=== PATIENT | male | born 1995 | race Native Hawaiian/Other Pacific Islander ===

== ENCOUNTER 2017-11-10 20:01 | Inpatient (IN) | payer OTHER ==
--- NOTE | 2017-11-10 20:31 | C.PDOC ---
History Of Present Illness Jaime Menon is a 22 year old male, with no significant past medical history, who was brought to the emergency department via EMS complaining of feeling depressed onset for a few days. Patient is anhedonic and denies any alcohol use. He denies any homicidal ideation or hallucinations. No further medical complaints. PMD: None provided. Time Seen by Provider: 11/10/17 20:31 Chief Complaint (Nursing): Psychiatric Evaluation History Per: Patient History/Exam Limitations: no limitations Onset/Duration Of Symptoms: Days Current Symptoms Are (Timing): Still Present Suicide/Self Injury Attempted (Context): None Modifying Factor(s): None Severity: None Associated Symptoms: Depression, Suicidal Thoughts. denies: Suicidal Plan Involuntary Hold By: None Recent travel outside of the [place]: No Additional History Per: Patient Past Medical History Reviewed: Historical Data, Nursing Documentation, Vital Signs Vital Signs: Last Vital Signs Temp 98 F 11/10/17 20:11 Pulse 72 11/10/17 20:11 Resp 20 11/10/17 20:11 BP 132/75 11/10/17 20:11 Pulse Ox 98 11/10/17 20:44 - Medical History PMH: No Chronic Diseases Surgical History: No Surg Hx Family History: States: Unknown Family Hx - Social History Hx Tobacco Use: No Hx Alcohol Use: No Hx Substance Use: No - Immunization History Hx Tetanus Toxoid Vaccination: No Hx Influenza Vaccination: No Hx Pneumococcal Vaccination: No Review Of Systems Constitutional: Negative for: Fever, Chills Cardiovascular: Negative for: Chest Pain Respiratory: Negative for: Shortness of Breath Gastrointestinal: Negative for: Abdominal Pain Musculoskeletal: Negative for: Back Pain Skin: Negative for: Rash Neurological: Negative for: Weakness, Altered Mental Status Psych: Positive for: Depression, Suicidal ideation Physical Exam - Physical Exam Appears: No Acute Distress Skin: Warm, Dry Head: Normacephalic Eye(s): bilateral: Normal Inspection Oral Mucosa: Moist Neck: Supple Chest: Symmetrical Cardiovascular: Rhythm Regular Respiratory: No Rales, No Rhonchi, No Wheezing Gastrointestinal/Abdominal: Soft, No Tenderness Back: No CVA Tenderness Extremity: Normal ROM, No Deformity, No Swelling Extremity: Bilateral: Atraumatic Neurological/Psych: Oriented x3 Gait: Steady ED Course And Treatment - Laboratory Results Result Diagrams: 11/10/17 20:41 11/10/17 20:41 O2 Sat by Pulse Oximetry: 98 (RA) Pulse Ox Interpretation: Normal Progress Note: Initial Impression: depression. Initial Plan: Alcohol serum, CMP , Drug screen, urine, CBC w/differential, AES Crisis evaluation,Urinalysis Disposition Discussed With .: Robert Moreno Comment: accepted the pt on his service and took over the care at 11PM Doctor Will See Patient In The: Hospital Counseled Patient/Family Regarding: Studies Performed, Diagnosis - Disposition Disposition: HOSPITALIZED Disposition Time: 20:31 Condition: FAIR Forms: [employer] (German) - POA Present On Arrival: None - Clinical Impression Clinical Impression: Psychosis - Scribe Statement Sebastian Zambrano Decision To Admit - Pt Status Changed To: Hospital Disposition Of: Inpatient - Admit Certification Admit to Inpatient:: After my assessment, the patient will require hospitalization for at least two midnights. This is because of the severity of symptoms shown, intensity of services needed, and/or the medical risk in this patient being treated as an outpatient. - InPatient: Physician Admission Certification: I certify that this patient requires 2 or more midnights of care for the following reason:: After my assessment, the patient will require hospitalization for at least two midnights. This is because of the severity of symptoms shown, intensity of services needed, and/or the medical risk in this patient being treated as an outpatient. - . Bed Request Type: Psychiatry Admitting Physician: Robert Moreno Patient Diagnosis: Psychosis
[2017-11-10 20:47] LABS: BASO % 0.7 % (0.0-2.0); EOS % 0.3 % (0.0-4.0); HEMOGLOBIN 14.7 g/dL (12.0-18.0); LYMPH # 1.3 K/uL (1.0-4.3); LYMPH % 21.1 % (20.0-40.0); MEAN CELL VOLUME 88.3 fL (80.0-94.0); MEAN CORPUSCULAR HEMOGLOBIN 29.9 pg (27.0-31.0); MEAN CORPUSCULAR HGB CONC 33.8 g/dL (33.0-37.0); MEAN PLATELET VOLUME 8.9 fL (7.2-11.7); MONO # 0.4 K/uL (0.0-0.8); MONO % 6.2 % (0.0-10.0); NEUT # 4.6 K/uL (1.8-7.0); NEUT % 71.7 % (50.0-75.0); RBC 4.93 Mil/uL (4.40-5.90); RED CELL DISTRIBUTION WIDTH 13.5 % (11.5-14.5); URINE BILIRUBIN NEGATIVE (NEGATIVE); URINE BLOOD NEGATIVE (NEGATIVE); URINE CLARITY Clear (Clear); URINE COLOR Yellow (YELLOW); URINE GLUCOSE (UA) NORMAL (Normal); URINE LEUKOCYTE ESTERASE NEG Leu/uL (Negative); URINE PROTEIN NEGATIVE (NEGATIVE); WHITE BLOOD COUNT 6.4 K/uL (4.8-10.8)
[2017-11-10 20:57] LABS: ALB/GLOB RATIO 1.7 (1.0-2.1); ALT/SGPT 42 U/L (21-72); AST/SGOT 26 U/L (17-59); BLOOD UREA NITROGEN 11 mg/dL (9-20); CALCIUM 9.6 mg/dl (8.6-10.4); GFR AFRICAN-AMERICAN > 60; GFR NON-AFRICAN AMERICAN > 60
[2017-11-10 21:01] LABS: BARBITURATES, UR NEGATIVE (NEGATIVE); BENZODIAZEPINES, UR NEGATIVE (NEGATIVE); OPIATES, UR NEGATIVE (NEGATIVE); PHENCYCLIDINE, UR NEGATIVE (NEGATIVE)
--- NOTE | 2017-11-11 00:36 | PCM.BM ---
<Gaby Marsh - Last Filed: 11/11/17 00:33> Treatment Plan Problems - Problems identified on initial assessmt Depression Date Initiated: 11/11/17 Time Initiated: 12:00 Assessment reference: NA Status: Active suicidal ideation Date Initiated: 11/11/17 Time Initiated: 12:00 Assessment reference: NA Status: Monitor Treatment assets and liabiliti Patient Assests: cooperative, educated, ADL independent, physically healthy, good support system, negotiates basic needs Patient Liabilities: other (Depression) - Milieu Protocol Maintain good personal hygiene: daily Encourage regular showers, daily Remind patient to perform daily oral care, daily Assist patient to perform ADL's Conduct patient checks and document Observation sheet: Q15 minutes Maintain personal safety: every shift Educate patient to report safety concerns to staff, every shift Monitor environment for contraband/sharps Medication safety: Monitor for expected outcome, potential side effects: every shift, Assess barriers to learning: every shift, Assess readiness for medication education: every shift <Deven Clark - Last Filed: 11/11/17 13:18> - Diagnosis (1) Psychosis Status: Acute Interventions: 11/11/17 13:18 * Assess/adjust medications daily and /or as needed * See patient on an individual basis 7x/week to assess status of hallucinations * Discuss risks, benefits, side effects and alternatives of medications * <Charlene Ramirez - Last Filed: 11/15/17 10:15> Discharge/Continuing Care - Education Needs Education Needs: Patient Medication, Patient Coping Skills - Discharge Discharge Criteria: Tolerates medication w/o severe side effects, Reduction of target symptoms Discharge to:: Home, With Family
--- NOTE | 2017-11-11 10:05 | PCM.PSYCH ---
Initial Psychiatric Evaluation - Initial Psychiatric Evaluation Type of Admission: Voluntary Legal Status: Capacity Chief Complaint (in patient's own words): I am getting energy from other people.' History of Present Illness and Precipitating Events: This is a 22 y/o male, who is a premed student at [employer], was transported to ED via Ambulance, because of depressed mood and suicidal ideation. As per the father, patient has no past psychiatric history of any inpatient psychiatric hospitalizations or any history of follow-up with any psychiatrist. As per him, since past 2 weeks he is becoming increasingly disorganized and internally preoccupied with 'energy.' Patient believes that 'people are transmitting their energies through energy chords to his brain.' He believes that 'he has power to transfer his energy to other people.' As per the father, he called him and made suicidal statement and homicidal statements saying that ' he doesn't want to harm you and mother.' Father got concerned and called 911. Patient remained disorganized and internally preoccupied with unseen energy chords. Pt. reports that 'he was attending a class to learn about energy.' Pt. 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 reports that 'he has a hard time making friends in school and that other kids make fun of him because he is smart and has good grades.' During the whole interview, he was making gestures with his hands to his head and reports that 'people are trying to transmit their energy, so he is breaking the energy wires, at this moment.'. Pt. remained paranoid, delusional and grandiose that 'he can also drain other people's energy.' He reports auditory hallucinations, hearing voices and visual hallucinations, seeing energy wires. He reports at times depressed mood, and feelings of hopelessness, and helplessness. He admits to having suicidal thoughts before coming to the hospital. Pt. denies any drinking or any drug use , but admits that a lot of students in his school use drugs. PMH: None reported Current Medications: Active Medications Generic Name Dose Route Start Last Admin Trade Name Freq PRN Reason Stop Dose Admin Aripiprazole 5 mg 11/11/17 10:00 Abilify PO DAILY AGUSTINA Hydroxyzine HCl 25 mg 11/10/17 23:56 Atarax PO Q4H PRN Anxiety Ibuprofen 400 mg 11/10/17 23:56 Motrin Tab PO Q6H PRN Pain, moderate (4-7) Lorazepam 0.5 mg 11/10/17 23:59 Ativan PO Q4H PRN Agitation Pneumococcal Polyvalent Vaccine 0.5 ml 11/14/17 10:00 Pneumovax 23 Vaccine IM 11/14/17 10:01 .ONCE ONE Trazodone HCl 50 mg 11/10/17 23:59 Desyrel PO HS PRN Insomnia Past Psychiatric History - Past Psychiatric History Previous Treatment History: None Pertinent Medical Hx (Current Medical&Sleep Prob, Allergies): Allergies Allergy/AdvReac Type Severity Reaction Status Date / Time No Known Allergies Allergy Unverified 11/10/17 20:17 Review of Systems - Review of Systems All systems: reviewed and no additional remarkable complaints except - Psychiatric Psychiatric: Anxiety, Depression, Hopelessness, Irritability, Paranoia, Suicidal Ideation, Visual Hallucinations Mental Status Examination - Personal Presentation Personal Presentation: Looks stated age - Affect Affect: Constricted, Depressed - Motor Activity Motor Activity: Psychomotor Agitation - Reliability in Providing Information Reliability in Providing Information: Poor, due to alteration in thoughts, Poor , due to altered mood - Speech Speech: Disorganized - Mood Mood: Anxious - Formal Thought Process Formal Thought Process: Hallucinations, Delusions, Paranoia, Loosening of associations - Hallucinations/Delusions Hallucinations: Visual Delusions: Persecution - Obsessions/Compulsions Obsessions: No Compulsions: No - Cognitive Functions Orientation: Person, Place, Situation, Time Sensorium: Alert Attention/Concentration: Attentive Abstract Thinking: [place] Estimate of Intelligence: Below average Judgement: Imparied, as evidence by: Poor judgement, Imparied, as evidence by: Lack of insight into illness - Risk Risk: Suicidal, Homicidal, Diminished functioning - Strength & Assets Inventory Strength & Assets Inventory: Family support, Education DSM 5 DX - DSM 5 DSM 5 Diagnosis: Brief Psychotic Disorder - Recommended/Plan of Treatment Treatment Recommendations and Plan of Treatment: Brief Psychotic Disorder -Psychoeducation -Supportive therapy, group therapy, individual therapy -Risperdal I mg PO BID -Cogentin 1 mg by mouth twice a day -Abilify 5 mg PO Q Daily -Trazodone 50 mg by mouth daily at bedtime - Smoking Cessation Smoking Cessation Initiated: No
--- NOTE | 2017-11-12 17:17 | PCM.PYCHPN ---
Psychiatric Progress Note - Psychiatric Progress Note Patient seen today, length of contact: 15 min Patient Chief Complaint: I am getting energy from other people.' Problems Identified/Issues Discussed: Patient seen and evaluated, chart reviewed and discussed with the nurse. Patient remained disorganized and internally preoccupied with energy. Patient remained isolated, confined and withdrawn. He still appears paranoid and delusional. He reports some improvement in his mood and feelings of hopelessness and helplessness. But he remained isolated and withdrawn, He is taking medication and denies any side effects. Symptoms are improving but he needs more time for stabilization. Supportive therapy and psychoeducation were given. Medication Change: Yes Medical Record Reviewed: Yes Mental Status Examination - Cognitive Function Orientation: Person, Place, Situation, Time Memory: Intact Attention: WNL Concentration: Poor Association: Loose Fund of Knowledge: Poor - Mood Mood: Anxious - Affect Affect: Constricted, Depressed - Formal Thought Process Formal Thought Process: Hallucinations, Delusions, Paranoia, Loosening of associations - Suicidal Ideation Suicidal Ideation: No - Homicidal Ideation Homicidal Ideation: No Goal/Treatment Plan - Goal/Treatment Plan Need for Continued Stay: Severe depression anxiety, Severe functional impairment Progress Toward Problem(s) and Goals/Treatment Plan: Brief Psychotic Disorder -Psychoeducation -Supportive therapy, group therapy, individual therapy -Risperdal 2 mg PO HS -Cogentin 1 mg by mouth twice a day -Abilify 5 mg PO Q Daily -Trazodone 50 mg by mouth daily at bedtime - Smoking Cessation Smoking Cessation Initiated: No
[2017-11-14 07:08] VITALS: RESP 20; O2SAT 98
[2017-11-14] MEDS ORDERED: Pneumococcal 23-Valent Vaccine IM ONE (10:00)
[2017-11-14] MEDS ORDERED: Influenza Vaccine 60 mcg/0.5 mL SYR (4YR UP) IM ONE (10:00)
[2017-11-14] MEDS ORDERED: Vitamins A & D Oint UD Foilpak TOP SCH (20:45)
[2017-11-14] MEDS ORDERED: Vitamins A & D Oint UD Foilpak TOP PRN (23:39)
--- NOTE | 2017-11-15 04:07 | PCM.PYCHPN ---
Psychiatric Progress Note - Psychiatric Progress Note Patient seen today, length of contact: 15 min Patient Chief Complaint: I AM FINE Problems Identified/Issues Discussed: MEDICATION ADHERENCE PT IS REFUSESING TO TAKE RISPERDAL BECAUSE HE STATES HE DOES NOT NEED IT Medical Problems: EXCESSIVE BLINKING BLEPHARITIS ? Diagnostic Results: REVIEWED DSM 5 Symptoms Update: HAVING DIFFICULTY CONCENTRATING Medication Change: No Medical Record Reviewed: Yes Mental Status Examination - Cognitive Function Orientation: Person, Place, Situation, Time Memory: Intact Attention: WNL Concentration: Poor Association: WNL Fund of Knowledge: WNL - Mood Mood: Anxious - Affect Affect: Constricted, Depressed - Speech Speech: Soft - Formal Thought Process Formal Thought Process: Hallucinations, Delusions, Paranoia, Loosening of associations - Suicidal Ideation Suicidal Ideation: No - Homicidal Ideation Homicidal Ideation: No Goal/Treatment Plan - Goal/Treatment Plan Need for Continued Stay: Severe depression anxiety, Severe functional impairment Progress Toward Problem(s) and Goals/Treatment Plan: BRIEF PSYCHOTIC REACTION RISPERDAL [facility] SUPPORTIVE PSYCHOTHERAPY. Estimated Date of D/C: 11/18/17 - Smoking Cessation Smoking Cessation Initiated: No
--- NOTE | 2017-11-15 04:13 | PCM.PYCHPN ---
Psychiatric Progress Note - Psychiatric Progress Note Patient seen today, length of contact: 15 min Patient Chief Complaint: I WANT TO BE DISCHARGED TODAY MY PARENTS ARE COMING FROM [place] TO SEE ME Problems Identified/Issues Discussed: MEDICATION ADHERENCE PROS AND CONS OF BEING DISCHARGED. D/W DR. MCINTYRE PT NOT TO BE DISCHARGED TODAY MUST SIGN A 48 HOUR NOTICE Medical Problems: BLEPHARITIS ? Diagnostic Results: REVIEWED Medication Change: No (REFUSING MEDS) Medical Record Reviewed: Yes Mental Status Examination - Cognitive Function Orientation: Person, Place, Time Memory: Intact Attention: WNL Concentration: Poor Association: WNL Fund of Knowledge: WNL - Mood Mood: Neutral - Affect Affect: Flat, Depressed - Speech Speech: Soft - Formal Thought Process Formal Thought Process: Hallucinations, Delusions, Paranoia, Loosening of associations - Suicidal Ideation Suicidal Ideation: No - Homicidal Ideation Homicidal Ideation: No Goal/Treatment Plan - Goal/Treatment Plan Need for Continued Stay: Severe depression anxiety, Severe functional impairment Progress Toward Problem(s) and Goals/Treatment Plan: BRIEF PSYCHOTIC REACTION RISPERDAL [facility]PPORTIVE PSYCHOTHERAPY Estimated Date of D/C: 11/18/17 - Smoking Cessation Smoking Cessation Initiated: No
--- NOTE | 2017-11-15 13:24 | PCM.PYCHPN ---
Psychiatric Progress Note - Psychiatric Progress Note Patient seen today, length of contact: 15 minute Patient Chief Complaint: "I feel totally fine now, I need to go home. By staying here I am absorbing energy from every one." Problems Identified/Issues Discussed: The pt is seen, chart reviewed, case discussed with staff. Patient appears very anxious and exhibiting labile mood responses. During the conversation, patient stated that he no longer feels suicidal, that "it was just that day", that he has found peace with himself, gotten good with God again , and has finally found a purpose for his direction in life. Patient continued to add that day was "a dark time in my life" and that he doesn't want to go back there again. He denies any specific visual, auditory hallucinations. However, he does state that he has now reconnected with God, speaks to him spiritually, and gets spoken back to via how his mood and feelings adapt. Over the course of the conversation, patient became quite irritable, agitated and uncomfortable. He refused any pharmalogical interventions, and stated "I don't need them". Over the next several minutes, his mood and responses changed drastically, as he stated that he feels fine, requested that he be sent home as he " have midterms next week and need to return back to my studies now". Patient was jumping up and down requesting to go home today as he needs to go back to studying. Also reported that he is feeling better as by staying in the hospital he is absorbing energy from everyone. After care discussed, support and psychoeducation given. It was highly recommended to him to establish outpatient care and continue with [facility]. Patient stated that he would be open to this idea only if it would help his studies, that if it interfered with his studies that he does not want it. Medical Problems: None Diagnostic Results: Reviewed DSM 5 Symptoms Update: No change from previous Medication Change: No (REFUSING MEDS) Medical Record Reviewed: Yes Mental Status Examination - Cognitive Function Orientation: Person, Place, Situation, Time Memory: Intact Attention: WNL Concentration: WNL Association: Loose Fund of Knowledge: WNL Decription of patient's judgement and insights: Poor - Mood Mood: Anxious Additional comments: Labile, changed quickly from neutral to irritable/anxious, to bargaining, to depressed - Affect Affect: Blunted - Speech Speech: Soft - Formal Thought Process Formal Thought Process: Delusions, Paranoia, Loosening of associations, Flight of ideas - Suicidal Ideation Suicidal Ideation: No - Homicidal Ideation Homicidal Ideation: No Goal/Treatment Plan - Goal/Treatment Plan Need for Continued Stay: Remain at risks for inpatient hospitalization, Discharge may exacerbated symptoms, Severe functional impairment Progress Toward Problem(s) and Goals/Treatment Plan: Encourage medications Support and psychoeducation daily Attend groups and activities daily After care planning by RADHA, encourage [facility] support Will call screening services at [facility] for involuntary commitment. Estimated Date of D/C: 11/25/17 - Smoking Cessation Smoking Cessation Initiated: No Reason for not providing: Patient does not smoke cigarettes
--- NOTE | 2017-11-16 11:50 | PCM.PYCHPN ---
Psychiatric Progress Note - Psychiatric Progress Note Patient seen today, length of contact: 15 minutes Patient Chief Complaint: "I have changed, I feel better" Problems Identified/Issues Discussed: The pt is seen, chart reviewed, case discussed with staff. He was seen and evaluated by [facility] inpatient screener last night. Patient was accepted for Involuntary commitment. This morning, patient initially stated that "I'm feeling very sleepy" and that "I'm feeling the same as yesterday". Minutes later , patient quickly stated that "I have changed since yesterday... I feel better.. Can't you see the sparkle in my eyes". He denies any feeling of anxiety , depression, SI/HI or hallucinations. After care was discussed, that he will need to be transferred to [facility] for a higher level of care. Patient expressed his understanding. Still refusing medications at this time. Medical Problems: None reported Diagnostic Results: Reviewed DSM 5 Symptoms Update: No change from the previous Medication Change: No (REFUSING MEDS) Medical Record Reviewed: Yes Mental Status Examination - Cognitive Function Orientation: Person, Place, Time Memory: Intact Attention: WNL Concentration: WNL Association: Loose Fund of Knowledge: WNL Decription of patient's judgement and insights: Poor - Mood Mood: Anxious - Affect Affect: Blunted - Speech Speech: Appropriate - Formal Thought Process Formal Thought Process: Delusions, Paranoia, Loosening of associations, Flight of ideas, Perservation - Suicidal Ideation Suicidal Ideation: No - Homicidal Ideation Homicidal Ideation: No Goal/Treatment Plan - Goal/Treatment Plan Need for Continued Stay: Remain at risks for inpatient hospitalization, Discharge may exacerbated symptoms, Severe functional impairment Progress Toward Problem(s) and Goals/Treatment Plan: Encourage medications Support and psychoeducation daily Attend groups and activities daily After care planning by RADHA, transfer to [facility] inpatient unit once bed is available. Estimated Date of D/C: 11/25/17 (transfer to [facility]) - Smoking Cessation Smoking Cessation Initiated: No Reason for not providing: Patient does not smoke cigarettes
[2017-11-17 06:17] VITALS: TEMP 97.4
--- NOTE | 2017-11-17 10:52 | PCM.PYCHPN ---
Psychiatric Progress Note - Psychiatric Progress Note Patient seen today, length of contact: 15 minutes Patient Chief Complaint: "I feel much better" Problems Identified/Issues Discussed: The pt is seen, chart reviewed, case discussed with staff. Patient agreed to take medications last night. No remarkable events were noted overnight. This morning, patient states that "I feel much better, I just feel neutral". When asked what he means by "neutral", he replied "I dont feel manic and I dont feel tired ... just normal again". Patient appears less anxious today and his speech is less pressured. He denies any feeling of anxiety, depression, SI/HI or hallucinations. He makes mention about his concern for the potential development of schizophrenia. Patient states that, "I have been on summer camps with patients with bipolar disorder and schizophrenia ... I dont act like them" and "All I ask is to just have victor hugo and consider that I dont have this". Patient now compliant with medications. No reported side effects at this time. After care was discussed. Medical Problems: None reported Diagnostic Results: Reviewed Medication Change: Yes Medical Record Reviewed: Yes Mental Status Examination - Cognitive Function Orientation: Person, Place, Time Memory: Intact Attention: WNL Concentration: WNL Association: Loose Fund of Knowledge: WNL Decription of patient's judgement and insights: Poor - Mood Mood: Anxious - Affect Affect: Blunted - Speech Speech: Appropriate - Formal Thought Process Formal Thought Process: Delusions, Paranoia, Loosening of associations, Flight of ideas, Perservation - Suicidal Ideation Suicidal Ideation: No - Homicidal Ideation Homicidal Ideation: No Goal/Treatment Plan - Goal/Treatment Plan Need for Continued Stay: Remain at risks for inpatient hospitalization, Discharge may exacerbated symptoms, Severe functional impairment Progress Toward Problem(s) and Goals/Treatment Plan: Encourage medications Support and psychoeducation daily Attend groups and activities daily After care planning by RADHA, transfer to [facility] inpatient unit once bed is available. Estimated Date of D/C: 11/25/17 (transfer to [facility])
--- NOTE | 2017-11-17 15:07 | RAD ---
HISTORY: for [facility] psyche admission COMPARISON: No prior. FINDINGS: LUNGS: No active pulmonary disease. PLEURA: No significant pleural effusion identified, no pneumothorax apparent. CARDIOVASCULAR: Normal. OSSEOUS STRUCTURES: No significant abnormalities. VISUALIZED UPPER ABDOMEN: Normal. OTHER FINDINGS: None. IMPRESSION: No active disease.
[2017-11-17 15:27] VITALS: BP 114/73; PULSE 102
== END 2017-11-17 17:45 | disposition short-term general hospital (02) | DRG 885 ==
LOC: C.ER 20:01 → C.5E 23:00
PROVIDERS: ADMIT Psychiatry & Neurology Psychiatry; ATTEND Psychiatry & Neurology Psychiatry
PROC: GZ3ZZZZ Medication Management (ICD-10-PCS; principal; 2017-11-10)
PROC: GZHZZZZ Group Psychotherapy (ICD-10-PCS; 2017-11-10)
PROC: GZ56ZZZ Individual Psychotherapy, Supportive (ICD-10-PCS; 2017-11-10)
DX: F23 Brief psychotic disorder (principal); R45.851 Suicidal ideations